=== PATIENT | male | born 1955 | race Caucasian/White ===

== ENCOUNTER → 2018-04-29 08:06 | Outpatient (CLI) | payer OTHER, SELFPAY ==
--- NOTE | 2018-04-29 08:10 | DI.RAD.S_ITS ---
PROCEDURE: XR CHEST 2V INDICATIONS: unexplained weight loss in smoker TECHNIQUE: 2 views of the chest were acquired. COMPARISON: None. FINDINGS: Surgical changes and devices: None. Lungs and pleura: No pleural effusions or pneumothorax. Lungs are clear. Mediastinum: Mediastinal contours are normal. Heart size is normal. Bones and chest wall: No suspicious bony abnormalities. Soft tissues appear unremarkable. IMPRESSION: No acute process. Screening chest CT recommended. Dictated by: Renetta Serrano M.D. on 04/29/2018 at 9:00 Approved by: Renetta Serrano M.D. on 04/29/2018 at 9:01
[2018-04-29 08:52] LABS: Add Manual Diff / Slide Review NO; Basophils Percent Auto 0.7 % (0-2); Eosinophils Percent Auto 2.4 % (2-4); Hematocrit 41.7 % (41-53); Hemoglobin 14.2 g/dL (13.5-17.5); Lymphocytes Percent Auto 28.5 % (25-40); Mean Corpuscular Hemoglobin 31.6 PG (26-34); Mean Corpuscular Volume 92.8 fL (80-100); Monocytes Percent Auto 8.6 % (3-14); Neutrophils Absolute Auto 7100 /uL (3000-5900); Neutrophils Percent Auto 59.8 % (50-75); Platelet Count 296 X10^3/uL (150-400); Red Blood Cell Count 4.49 X10^6/uL (4.5-5.9); Red Cell Distribution Width 13.2 % (11.6-14.8); White Blood Cell Count 11.9 X10^3/uL (4.5-11.0)
[2018-04-29 09:18] LABS: Alanine Aminotransferase 27 IU/L (21-72); Albumin 4.3 g/dL (3.5-5.0); Albumin Globulin Ratio 1.5 (1.0-2.8); Alkaline Phosphatase 78 U/L (38-126); Aspartate Aminotransferase 29 IU/L (17-59); Bilirubin Total 0.8 mg/dL (0.2-1.3); Blood Urea Nitrogen 18 mg/dL (9-20); Calcium 9.4 mg/dL (8.4-10.2); Carbon Dioxide 26 mmol/L (22-32); Chloride 105 mmol/L (98-107); Cholesterol 235 mg/dL (140-199); Estimated Glomerular Filt Rate > 60.0 mL/min (>60); Globulin 2.9 g/dL (1.7-4.1); Glucose 111 mg/dL (80-110); HDL Cholesterol 86 mg/dL (40-60); HEMOLYSIS < 15 (0-50); LDL Cholesterol Calculated 134 mg/dL (<100); Potassium 4.1 mmol/L (3.4-5.1); Sodium 140 mmol/L (137-145); Total Protein 7.2 g/dL (6.3-8.2); Triglycerides 74 mg/dL (35-150)
[2018-04-29 09:47] LABS: TSH w/ Reflex to FT4 2.07 uIU/mL (0.47-4.68)
[2018-05-03 12:48] LABS: Testosterone Free 49.9 pg/mL (35.0-155.0); Testosterone Total 310 ng/dL (250-1100)
== END ==
PROVIDERS: PCP Family Medicine; Visit Provider Family Medicine
DX: R63.4 Abnormal weight loss (principal); E78.5 Hyperlipidemia, unspecified; R53.82 Chronic fatigue, unspecified
CPT/HCPCS: 36415; 71046; 80053; 80061; 84153; 84402; 84403; 84443; 85025

== ENCOUNTER → 2018-05-30 11:01 | Outpatient (CLI) | payer OTHER, SELFPAY ==
[2018-05-30 12:22] LABS: Blood Urea Nitrogen 23 mg/dL (9-20); Estimated Glomerular Filt Rate > 60.0 mL/min (>60)
== END ==
PROVIDERS: PCP Family Medicine; Visit Provider Student in an Organized Health Care Education/Training Program
DX: Z01.812 Encounter for preprocedural laboratory examination (principal)
CPT/HCPCS: 36415; 82565; 84520

== ENCOUNTER → 2018-06-01 14:50 | Outpatient (CLI) | payer OTHER, SELFPAY ==
--- NOTE | 2018-06-01 14:51 | DI.CT.S_ITS ---
PROCEDURE: CT CHEST ABD PEL W CON INDICATIONS: EVALUATE AND TREAT TECHNIQUE: After the administration of oral and intravenous contrast, 5 mm thick sections acquired from the lung apices to the symphysis. 5 mm coronal and sagittal reformats were performed, with additional 7 mm coronal MIP reformats through the lungs. For radiation dose reduction, the following was used: automated exposure control, adjustment of mA and/or kV according to patient size. COMPARISON: None. FINDINGS: Image quality: Excellent. CHEST: Lungs and pleura: There are moderate to severe paraseptal emphysematous changes with a right upper lobe predominance. There are 2 small ground glass nodules within the right lower lobe measuring approximately 7 mm on series 7 images 38 and 39. There is pleural thickening demonstrated anteriorly along the inferior right middle lobe with adjacent prominent vessels. Findings are suggestive of scarring. Mild posterior scarring is also demonstrated in the posterior right lower lobe. No acute consolidation. A No pleural effusions or pneumothorax. Central and peripheral airways appear patent and normal in caliber. Mediastinum: Heart size is normal. No pericardial effusion. There is coronary arterial vascular calcification. No mediastinal or hilar adenopathy by size criteria. Thoracic aorta and central pulmonary arteries are normal in size. Esophagus is normal in caliber. No hiatal hernia. Chest wall: No axillary or supraclavicular adenopathy by size criteria. Thyroid gland demonstrates no discrete nodules. ABDOMEN: Solid organs: No focal hepatic lesions identified. Gallbladder appears within normal limits without calcified gallstones. Biliary system is non dilated. Pancreas enhances normally. Spleen is normal in size and enhancement. No adrenal nodules. Kidneys demonstrate normal size and enhancement, without hydronephrosis. Peritoneum and bowel: Bowel loops demonstrate normal wall thickness and caliber. There is colonic diverticulosis without acute diverticulitis. No free fluid or air. Nodes and vessels: No retroperitoneal or mesenteric adenopathy by size criteria. There is fusiform aneurysm dilatation of the infrarenal abdominal aorta which measures up to 3.7 cm in anteroposterior dimension. Miscellaneous: No ventral hernias. PELVIS: Genitourinary: There is mild concentric bladder wall thickening. There is a small cystic lesion posterior to the right aspect of the bladder measuring up to 2.1 x 1.9 cm in transverse dimension. Miscellaneous: No inguinal hernias or adenopathy. Bones: No suspicious bony lesions. No vertebral body compression fractures. IMPRESSION: 1. Moderate to severe paraseptal emphysematous changes with a right upper lobe predominance. 2. Small right lower lobe pulmonary nodules measuring up to 7 mm. Recommend followup in 6 months to demonstrate stability. 3. Peripheral pleural thickening along the right middle lobe with adjacent prominent vessels is nonspecific. Findings likely represent scarring but attention is recommended on followup. 4. Abdominal aortic aneurysm measuring up to 3.7 cm. Recommend annual followup to demonstrate stability. 5. Mild bladder wall thickening suggestive of a mild cystitis. Recommend correlation with urinalysis. 6. Small cystic structure posterior to the right lateral wall a represent a ureterocele or possible cyst associated with the right seminal vesicles. Dictated by: Viktor Pena M.D. on 06/01/2018 at 16:32 Approved by: Viktor Pena M.D. on 06/01/2018 at 16:46
== END ==
PROVIDERS: PCP Family Medicine; Visit Provider Family Medicine
DX: I71.4 Abdominal aortic aneurysm, without rupture (principal); J43.8 Other emphysema; R63.4 Abnormal weight loss; R91.8 Other nonspecific abnormal finding of lung field
CPT/HCPCS: 71260; 74177; Q9967

== ENCOUNTER → 2018-07-22 07:40 | Outpatient (CLI) | payer OTHER, SELFPAY ==
[2018-07-22 08:53] LABS: Blood Urea Nitrogen 21 mg/dL (9-20); Calcium 9.9 mg/dL (8.4-10.2); Carbon Dioxide 27 mmol/L (22-32); Chloride 107 mmol/L (98-107); Cholesterol 237 mg/dL (140-199); Estimated Glomerular Filt Rate > 60.0 mL/min (>60); Glucose 111 mg/dL (80-110); HDL Cholesterol 99 mg/dL (40-60); HEMOLYSIS < 15 (0-50); LDL Cholesterol Calculated 126 mg/dL (<100); Sodium 144 mmol/L (137-145); Triglycerides 59 mg/dL (35-150)
[2018-07-22 08:55] LABS: Add Manual Diff / Slide Review NO; Basophils Percent Auto 0.5 % (0-2); Eosinophils Percent Auto 1.7 % (2-4); Hematocrit 44.1 % (41-53); Hemoglobin 14.9 g/dL (13.5-17.5); Lymphocytes Percent Auto 25.9 % (25-40); Mean Corpuscular HGB Conc 33.7 % (30-36); Mean Corpuscular Hemoglobin 31.8 PG (26-34); Mean Corpuscular Volume 94.3 fL (80-100); Monocytes Percent Auto 9.7 % (3-14); Neutrophils Absolute Auto 7000 /uL (3000-5900); Neutrophils Percent Auto 62.2 % (50-75); Platelet Count 345 X10^3/uL (150-400); Red Blood Cell Count 4.67 X10^6/uL (4.5-5.9); Red Cell Distribution Width 13.4 % (11.6-14.8); White Blood Cell Count 11.3 X10^3/uL (4.5-11.0)
[2018-07-22 08:56] LABS: Potassium 5.4 mmol/L (3.4-5.1)
[2018-07-22 09:09] LABS: Vitamin D 25 Hydroxy (D3) 19.2 ng/mL (30.0-100.0)
[2018-07-22 09:40] LABS: Vitamin B12 692 pg/mL (239-931)
== END ==
PROVIDERS: PCP Student in an Organized Health Care Education/Training Program; Visit Provider Student in an Organized Health Care Education/Training Program
DX: E78.5 Hyperlipidemia, unspecified (principal); E55.9 Vitamin D deficiency, unspecified; R30.0 Dysuria; R53.83 Other fatigue
CPT/HCPCS: 36415; 80048; 80061; 82306; 82607; 85025

== ENCOUNTER → 2018-07-24 15:33 | Outpatient (CLI) | payer OTHER, SELFPAY ==
--- NOTE | 2018-07-24 15:35 | DI.US.S_ITS ---
PROCEDURE: US SCROTUM INDICATIONS: Right scrotal mass TECHNIQUE: Real-time scanning was performed of the scrotum and testicles, with image documentation. Color and pulse Doppler interrogation was performed of both testicles. COMPARISON: None. FINDINGS: Right: Testicle is normal in size at 4.4 x 2.5 x 2.9 cm, and homogenous in echotexture. The right epididymis is not well-seen related to multiple epididymal cysts with the largest measuring up to 2.9 cm in diameter. No vascularity is demonstrated to be cysts. No significant hydrocele or varicoceles. Overlying scrotal skin is normal in thickness. Left: Testicle is normal in size at 4.0 x 2.2 x 2.7 cm, and homogeneous in echotexture. Epididymis is normal in overall size and morphology. No hydrocele or varicoceles. Overlying scrotal skin is normal in thickness. Doppler: Color and pulse Doppler demonstrate normal and symmetric arterial flow in both testicles. IMPRESSION: 1. Right scrotal mass correlates with numerous epididymal cysts. 2. No testicular mass or suspicious mass is evident. 3. No evidence of infection. Dictated by: Jw Marie M.D. on 07/24/2018 at 16:21 Approved by: Jw Marie M.D. on 07/24/2018 at 16:23
== END ==
PROVIDERS: PCP Student in an Organized Health Care Education/Training Program; Visit Provider Student in an Organized Health Care Education/Training Program
DX: N50.3 Cyst of epididymis (principal)
CPT/HCPCS: 76870

== ENCOUNTER → 2018-07-28 14:37 | Outpatient (CLI) | payer OTHER, SELFPAY ==
--- NOTE | 2018-07-31 16:15 | PM.PFT.1 ---
Pulmonary Function Test Referral & Results Date Patient Seen: 07/28/18 Requesting provider: Abel Feng Results: The spirometry demonstrates an FVC of 3.56 L which is 90% of predicted. The FEV1 was measured at 2.39 L which is 80% of predicted. The FEV1/FVC ratio was 67 which is 80% of predicted. Following the administration of bronchodilator there was no appreciable change. Lung volumes show an SVC of 3.52 L which is 87% of predicted. The diffusing capacity was measured at 17.61 which is 68% of predicted. No hemoglobin value was provided, so no correction for potential anemia could be made, if appropriate. The maximum voluntary ventilation was normal Interpretation: This study demonstrates mild obstructive lung disease based on reduction in FEV1 and slight curve 2 flow volume loop. There is no evidence of significant benefit following bronchodilator Patient's lung volumes are probably normal but maybe slightly reduced There is more significant reduction of the diffusing capacity suggesting more significant disease at the capillary alveolar level. Altogether this suggest perhaps mild COPD Clinical correlation suggested
== END ==
PROVIDERS: PCP Student in an Organized Health Care Education/Training Program; Visit Provider Internal Medicine
DX: J44.9 Chronic obstructive pulmonary disease, unspecified (principal)
CPT/HCPCS: 94060; 94726; 94729

== ENCOUNTER → 2019-06-18 14:43 | Outpatient (CLI) | payer OTHER, SELFPAY ==
--- NOTE | 2019-06-18 14:46 | DI.CT.S_ITS ---
PROCEDURE: CT CHEST WO CON INDICATIONS: F/u pulmonary nodule TECHNIQUE: Noncontrast 2.0-2.5 mm thick sections acquired from the pulmonary apices to the posterior costophrenic angles. 7 mm thick axial MIP and 5 mm coronal and sagittal reformats were then acquired. A low radiation dose technique was utilized. COMPARISON: [facility], CT, CT CHEST ABD PEL W CON, 06/01/2018, 16:01. FINDINGS: Image quality: Diagnostic, given the low radiation dose technique. Lungs and pleura: No acute consolidation. Scattered subsegmental atelectasis and/or scarring. No pleural effusion. No pneumothorax. Redemonstration of ill-defined 7 mm nodules involving the mid right lung and fissure images 168 series 3, and 173 series 3. There is more solid, less ground glass appearance although this could be due to differences in exam protocol since prior study. Ill-defined pleural thickening and presumed prominent vascularity and scarring seen within the anterior right lung base, grossly unchanged appearance. Upper lobe paraseptal emphysematous changes as before Mediastinum: Heart size is normal. Coronary artery calcifications are present. No pericardial effusion. No mediastinal adenopathy by size criteria. Thoracic aorta and central pulmonary arteries are normal in size. Esophagus is normal in caliber. No hiatal hernia. Bones and chest wall: No suspicious bony lesions. Chronic right rib deformity. No vertebral body compression fractures. No axillary or supraclavicular adenopathy by size criteria. Thyroid gland unremarkable. Abdomen: Visualized upper abdomen solid organs and bowel loops appear normal in the absence of contrast. IMPRESSION: Redemonstration of multiple right-sided pulmonary nodules as discussed in detail above, still technically indeterminate although grossly unchanged. Recommend continued surveillance in [address] Additional chronic and incidental findings as above. Fleischner Society criteria for SOLID lung nodule followup. Nodule size (mm)Low-risk patientHigh-risk patient<6 (single or multiple)No routine followup.Optional CT at 12 months. 6-8 (single or multiple)CT at 6-12 months, then optional CT at 18-24 mo.CT at 6-12 months, then CT at 18-24 months. >8 (single)CT at 3 months, PET-CT, or biopsy. Same as for low-risk pts. >8 (multiple)CT at 3-6 months, then optional CT at 18-24 mo.CT at 3-6 months, then CT at 18-24 months. Fleischner Society criteria for SUB-SOLID lung nodule followup. Solitary pure ground-glass nodules<6 mm (ground glass or part solid)No followup needed. 6 mm or larger (ground glass)CT at 6-12 months to confirm persistence, then CT every 2 years until 5 years.6 mm or larger (part solid)CT at 3-6 months to confirm persistence, then annual CT until 5 years if unchanged and solid component remains <6 mm. Multiple sub-solid nodules<6 mmCT at 3-6 months, then CT consider at 2 & 4 years for high risk patients. [address] at 3-6 months. Subsequent management based on most suspicious lesions. Recommendations do not apply to lung cancer screening, patients with immunosuppression, or patients with known primary cancer. Dictated by: Demarco Muro M.D. on 06/18/2019 at 15:02 Approved by: Demarco Muro M.D. on 06/18/2019 at 15:10
--- NOTE | 2019-06-18 14:46 | DI.US.S_ITS ---
PROCEDURE: US RETRO PERITONEAL LIMITED INDICATIONS: FOLLOW UP ABDOMINAL AORTIC ANEURYSM TECHNIQUE: Real time scanning was performed of the aorta and iliac arteries, with image documentation. COMPARISON: [facility], CT, CT CHEST ABD PEL W CON, 06/01/2018, 16:01. FINDINGS: Aorta: Proximal aorta measures 1.9 x 2.1 cm. Mid aorta measures 2.9 x 3.8 cm. Distal abdominal aortic aneurysm measuring 3.8 x 4.[address] this measured 3.5 x 3.3 cm cross-sectional dimensions, and 3.7 cm AP dimension Iliac arteries: Right common iliac artery measures 1.3 cm. Left common iliac artery measures 1.3 cm. IMPRESSION: Interval enlargement of distal abdominal aortic aneurysm although exact comparison is difficult due to differences in modality. Recommend surgical consultation and management if not already. Aneurysmal enlargement of the mid abdominal aorta measuring up 3.8 cm. Dictated by: Demarco Muro M.D. on 06/18/2019 at 16:44 Approved by: Demarco Muro M.D. on 06/18/2019 at 16:49
== END ==
PROVIDERS: PCP Student in an Organized Health Care Education/Training Program; Visit Provider Student in an Organized Health Care Education/Training Program
DX: I71.4 Abdominal aortic aneurysm, without rupture (principal); R91.8 Other nonspecific abnormal finding of lung field; I25.10 Atherosclerotic heart disease of native coronary artery without angina pectoris
CPT/HCPCS: 71250; 76775

== ENCOUNTER → 2020-06-20 06:41 | Outpatient (CLI) | payer OTHER, SELFPAY ==
--- NOTE | 2020-06-20 | DI.ECHO.S_ITS ---
[facility]---------+ [facility] +---------+ : : [address] : : : : [id number] : : : : Phone: [phone] Echocardiogram Report + + :Name: YESENIA HANEY Study Date: 06/20/2020 Height: 65 in : :[facility] Weight: 125 lb : : Gender: Male BSA: 1.6 m2 : :: 1955 Age: 64 yrs BP: 130/73 mmHg: :Reason For Study: ABDOMINAL AORTIC ANEURYSM, PRE-OP : :Ordering Physician: Angelita : :MD Lita Performed By: Jovanna Grijalva : + + Interpretation Summary The left ventricle is normal in size. The ejection fraction is estimated to be 60-65%. The right ventricle is normal in size and function. No significant valvular pathology seen. There is mild luminal irregularity and echogenicity in the abdominal aorta, suggestive of aortic atherosclerotic disease. Abdominal aorta diameter about 2.7 cm. Procedure: A two-dimensional transthoracic echocardiogram with color flow and Doppler was performed. The study quality was technically good. There is no prior echocardiogram noted for this patient. The patient was in sinus bradycardia with heart rates between 52-58 bpm during the exam. Left Ventricle: The left ventricle is normal in size. There is normal left ventricular wall thickness. There is no thrombus. The ejection fraction is estimated to be 60-65%. There are no focal wall motion abnormalities. Diastolic parameters suggest probable normal left ventricular diastolic function and normal filling pressures. Right Ventricle: The right ventricle is normal in size and function. Atria: The left atrium is mildly dilated. Right atrial size is normal. There is no Doppler evidence for an interatrial shunt. Mitral Valve: The mitral valve leaflets are mildly calcified. There is trace mitral regurgitation. Aortic Valve: The aortic valve opens well. The aortic valve is trileaflet. There is no aortic valve stenosis. No aortic regurgitation is present. Tricuspid Valve: The tricuspid valve is normal in structure and function. Pulmonary artery pressures cannot be estimated because of the lack of a measurable TR jet velocity but the IVC suggests a CVP of around 3 mmHg. There is trace tricuspid regurgitation. Pulmonic Valve: The pulmonic valve is not well seen, but is grossly normal. There is trace pulmonic regurgitation. Great Vessels: The aortic root is normal size. The ascending aorta is normal in size. The aortic arch is normal in size. Abdominal aorta diameter about 2.7 cm. There is mild luminal irregularity and echogenicity in the abdominal aorta, suggestive of aortic atherosclerotic disease. The IVC is of normal diameter and collapses greater than 50% with a sniff. This suggests a low right atrial pressure of 3 mm Hg. Pericardium/ Pleura There is no pericardial effusion. MMode/2D Measurements & Calculations LVIDd: 4.8 cm LVOT diam: 2.0 cm LVIDs: 3.0 cm Ao root diam: 3.7 cm FS: 37.8 % Aortic Jxn: 2.9 cm EPSS: 0.30 cm asc Aorta Diam: 3.3 cm IVSd: 0.89 cm Ao Arch Diam (Prox Trans): 2.4 cm LVPWd: 0.83 cm LV rodriguez. diameter/BSA (cm/m^2): 2.9 LV sys. diameter/BSA (cm/m^2): 1.8 LA A2 area: 20.5 cm2 RA long axis: 4.5 cm LA A4 area: 17.8 cm2 RA area: 13.3 cm2 LA length (vol): 4.5 cm RA vol: 33.3 ml LA vol: 68.6 ml RA : 20.5 ml/m2 LA vol index: 42.4 ml/m2 IVC diam: 1.4 cm RVD1 (basal): 4.1 cm RVD2 (mid): 2.4 cm TAPSE: 2.8 cm Doppler Measurements & Calculations Ao V2 max: 143.1 cm/sec LVOT Max Chito: 99.9 cm/sec Ao V2 mean: 91.2 cm/sec LV V1 max P.0 mmHg Ao max P.2 mmHg LV V1 VTI: 23.5 cm Ao mean P.8 mmHg ZIA(I,D): 2.5 cm2 Ao V2 VTI: 29.4 cm ZIA(V,D): 2.1 cm2 sev ratio: 0.80 ZIA indexed to BSA (cm^2/m^2): 1.5 MV E max chito: 66.5 cm/sec PA V2 max: 59.2 cm/sec MV A max chito: 61.1 cm/sec PA V2 mean: 42.7 cm/sec MV E/A: 1.1 PA mean P.82 mmHg Med Peak E' Chito: 8.5 cm/sec PA Accel Time: 0.16 sec E/E' med: 7.8 Lat Peak E' Chito: 10.6 cm/sec E/E' lat: 6.3 E/e' average: 7.0 MV dec time: 0.19 sec MV P1/2t: 56.0 msec MV P1/2t max chito: 66.9 cm/sec SV(LVOT): 72.2 ml MVA(P1/2t): 3.9 cm2 Reading Physician:11:52 AM
== END ==
PROVIDERS: PCP Student in an Organized Health Care Education/Training Program; Referring Provider Student in an Organized Health Care Education/Training Program; Visit Provider Surgery Vascular Surgery
DX: Z01.810 Encounter for preprocedural cardiovascular examination (principal); I71.4 Abdominal aortic aneurysm, without rupture
CPT/HCPCS: 93306

== ENCOUNTER → 2020-07-05 13:03 | Outpatient (CLI) | payer OTHER, SELFPAY ==
[2020-07-07 02:10] LABS: COVID19 Sendout Not Detected (Not Detect)
== END ==
PROVIDERS: PCP Student in an Organized Health Care Education/Training Program; Visit Provider Student in an Organized Health Care Education/Training Program
DX: Z11.59 Encounter for screening for other viral diseases (principal)
CPT/HCPCS: 87635

== ENCOUNTER → 2020-08-19 11:20 | Outpatient (CLI) | payer OTHER, SELFPAY ==
[2020-08-19 13:43] LABS: Blood Urea Nitrogen 16 mg/dL (9-20); Estimated Glomerular Filt Rate > 60.0 mL/min (>60)
== END ==
PROVIDERS: PCP Student in an Organized Health Care Education/Training Program; Referring Provider Student in an Organized Health Care Education/Training Program; Visit Provider Student in an Organized Health Care Education/Training Program
DX: Z01.818 Encounter for other preprocedural examination (principal)
CPT/HCPCS: 36415; 82565; 84520

== ENCOUNTER → 2020-08-22 10:39 | Outpatient (CLI) | payer OTHER, SELFPAY ==
--- NOTE | 2020-08-22 | DI.CT.S_ITS ---
PROCEDURE: CT ANGIO ABDOMEN PELVIS INDICATIONS: Surveillance of AAA w/o rupture TECHNIQUE: After the administration of intravenous contrast, 2.5 mm thick sections acquired from the diaphragm to the symphysis. 10 mm maximum-intensity projection (MIP) reformats were then acquired. For radiation dose reduction, the following was used: automated exposure control. COMPARISON: [facility], CT, CT CHEST ABD PEL W CON, 06/01/2018, 16:01. FINDINGS: Image quality: Excellent. Aorta: Previously seen abdominal aortic aneurysm has been repaired. No evidence of significant aortic stenosis. 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 Superior mesenteric artery demonstrates mild origin stenosis. Inferior mesenteric artery is grossly patent. There are 2 right renal arteries, which are patent. Single left renal artery is patent. There is possible severe narrowing within the inferior left renal vein, versus flow artifact, which is unchanged compared to 06/01/2018. Extravascular soft tissues: Pleural parenchymal thickening within the right anterior lung base is unchanged. Lung bases are otherwise clear. Heart size is normal. Liver is normal in size and enhancement. Gallbladder is within normal limits . Biliary system is non dilated. Pancreas enhances normally. Spleen is normal in size and enhancement. No adrenal nodules. Kidneys are normal in size and enhancement, without hydronephrosis. Non opacified bowel loops are normal in wall thickness and caliber. No free fluid or air. No retroperitoneal or mesenteric adenopathy. No ventral hernias. No suspicious bony lesions. No vertebral body compression fractures. There is mild diffuse urinary bladder wall thickening. There is a 15 mm diameter cystocele involving the right posterior urinary bladder, which is increased in size. IMPRESSION: 1. Postsurgical sequelae. 2. No change in right basilar pleural parenchymal thickening. 3. 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 4. 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 5. Increased right posterior cystocele. 6. Diffuse urinary bladder wall thickening, which could be further assessed with cystoscopy, if clinically indicated. Dictated by: Renetta Serrano M.D. on 08/22/2020 at 13:35 Approved by: Renetta Serrano M.D. on 08/22/2020 at 13:44
--- NOTE | 2020-08-22 10:45 | DI.CT.S_ITS ---
PROCEDURE: CT CHEST WO CON INDICATIONS: surveillance of pulmonary nodule TECHNIQUE: Noncontrast 5 mm thick sections acquired from the pulmonary apices to the posterior costophrenic angles. 1 mm lung window, 5 mm thick coronal and sagittal and 7 mm axial MIP reformats were then acquired. For radiation dose reduction, the following was used: automated exposure control, adjustment of mA and/or kV according to patient size. COMPARISON: [facility], CT, CT CHEST WO [facility], 06/18/2019, 14:47. FINDINGS: Image quality: Excellent. Lungs and pleura: No pleural effusion or pneumothorax. There is diffuse emphysema, scarring and atelectasis. Previously identified pair of nodules involving the right fissure no longer visualized. Mediastinum: Heart size is normal. Coronary artery calcifications are present. No pericardial effusion. No mediastinal adenopathy by size criteria. Thoracic aorta and central pulmonary arteries are normal in size. Scattered vascular calcifications seen in the aorta. Esophagus is normal in caliber. No hiatal hernia. Bones and chest wall: No suspicious bony lesions. No vertebral body compression fractures. No axillary or supraclavicular adenopathy by size criteria. Thyroid is grossly unremarkable Abdomen: Visualized upper abdominal solid organs and bowel loops appear normal in the absence of contrast. IMPRESSION: Interval resolution of a pair of right fissural nodules since 06/18/19. Diffuse emphysema. Consider annual CT lung screening, if patient criteria met. Scattered scarring/atelectasis without focal consolidation Dictated by: Demarco Muro M.D. on 08/22/2020 at 13:07 Approved by: Demarco Muro M.D. on 08/22/2020 at 13:11
== END ==
PROVIDERS: PCP Student in an Organized Health Care Education/Training Program; Referring Provider Student in an Organized Health Care Education/Training Program; Visit Provider Student in an Organized Health Care Education/Training Program
DX: I71.4 Abdominal aortic aneurysm, without rupture (principal); R91.1 Solitary pulmonary nodule; I25.10 Atherosclerotic heart disease of native coronary artery without angina pectoris; J43.9 Emphysema, unspecified; Z98.890 Other specified postprocedural states
CPT/HCPCS: 71250; 74174; Q9967

== ENCOUNTER → 2021-10-14 14:33 | Outpatient (CLI) | payer OTHER, SELFPAY ==
--- NOTE | 2021-10-14 14:35 | DI.CT.S_ITS ---
PROCEDURE: CT CHEST WO CON INDICATIONS: Follow up pulmonary nodules, check for stability TECHNIQUE: Noncontrast 2.0-2.5 mm thick sections acquired from the pulmonary apices to the posterior costophrenic angles. 7 mm thick axial MIP and 5 mm coronal and sagittal reformats were then acquired. A low radiation dose technique was utilized. COMPARISON: [facility], CT, CT CHEST WO CON, 06/18/2019, 14:47. [facility], CT, CT CHEST WO CON, 08/22/2020, 10:45. FINDINGS: Image quality: Diagnostic, given the low radiation dose technique. Lungs and pleura: 7 x 5 mm solid nodule is noted in right lower lobe series 3, image 188, unchanged from 2009 study series 3, image 188. Previously described 7 mm nodule along right major fissure now measures 6 mm in size and is essentially unchanged series 3, image 192. Stable 5 mm nodular density involving more inferior aspect of right middle lobe anterior to the major fissure series 3, image 235. No new pulmonary nodule or mass is seen. Scattered scarring/atelectasis in periphery of bilateral lung olivarez are noted. Moderate to severe emphysematous changes are again seen in bilateral lung olivarez most prominent in right upper lobe. No pleural effusion or pneumothorax. Central and peripheral airway is patent. Mediastinum: Heart size is normal. No pericardial effusion. No mediastinal adenopathy by size criteria. Mild atherosclerotic calcifications are seen in coronary vessels and descending thoracic aorta. Thoracic aorta and central pulmonary arteries are normal in size. Esophagus is normal in caliber. No hiatal hernia. Bones and chest wall: No suspicious bony lesions. No vertebral body compression fractures. No axillary or supraclavicular adenopathy by size criteria. Thyroid gland is within normal limits. Abdomen: Visualized upper abdomen solid organs and bowel loops appear normal in the absence of contrast. Postsurgical changes are seen in epigastric region. IMPRESSION: 1. 3 subcentimeter nodular density seen in right middle and lower lobes as described above unchanged from 2019 study and likely represent benign nodular densities. Since these nodules were not well seen on 2019 study, additional 1 year follow-up is recommended to further establish stability. 2. No mediastinal or hilar lymphadenopathy. [id number] atherosclerotic disease. Fleischner Society criteria for SOLID lung nodule followup. Nodule size (mm)Low-risk patientHigh-risk patient<6 (single or multiple)No routine followup.Optional CT at 12 months. 6-8 (single or multiple)CT at 6-12 months, then optional CT at 18-24 mo.CT at 6-12 months, then CT at 18-24 months. >8 (single)CT at 3 months, PET-CT, or biopsy. Same as for low-risk pts. >8 (multiple)CT at 3-6 months, then optional CT at 18-24 mo.CT at 3-6 months, then CT at 18-24 months. Fleischner Society criteria for SUB-SOLID lung nodule followup. Solitary pure ground-glass nodules<6 mm (ground glass or part solid)No followup needed. 6 mm or larger (ground glass)CT at 6-12 months to confirm persistence, then CT every 2 years until 5 years.6 mm or larger (part solid)CT at 3-6 months to confirm persistence, then annual CT until 5 years if unchanged and solid component remains <6 mm. Multiple sub-solid nodules<6 mmCT at 3-6 months, then CT consider at 2 & 4 years for high risk patients. [address] at 3-6 months. Subsequent management based on most suspicious lesions. Recommendations do not apply to lung cancer screening, patients with immunosuppression, or patients with known primary cancer. Dictated by: Lee Costello M.D. on 10/14/2021 at 16:04 Approved by: Lee Costello M.D. on 10/14/2021 at 16:11
== END ==
PROVIDERS: PCP Student in an Organized Health Care Education/Training Program; Referring Provider Student in an Organized Health Care Education/Training Program; Visit Provider Student in an Organized Health Care Education/Training Program
DX: R91.8 Other nonspecific abnormal finding of lung field (principal); I25.10 Atherosclerotic heart disease of native coronary artery without angina pectoris; I70.0 Atherosclerosis of aorta
CPT/HCPCS: 71250